=== PATIENT | female | born 1990 | race Caucasian/White ===

== ENCOUNTER → 2025-10-09 08:23 | Outpatient (CLI) | payer OTHER, SELFPAY ==
[2025-10-09 09:06] LABS: Hematocrit 41.9 % (36-46); Hemoglobin 14.5 g/dL (12.0-16.0); Mean Corpuscular HGB Conc 34.6 % (30-36); Mean Corpuscular Hemoglobin 30.9 PG (26-34); Mean Corpuscular Volume 89.2 fL (80-100); Platelet Count 198 X10^3/uL (150-400)
[2025-10-09 09:46] LABS: Alanine Aminotransferase 14 IU/L (<35); Albumin 4.4 g/dL (3.5-5.0); Albumin Globulin Ratio 1.5 (1.0-2.8); Alkaline Phosphatase 58 U/L (38-126); Blood Urea Nitrogen 11 mg/dL (7-17); Calcium 9.0 mg/dL (8.4-10.2); Carbon Dioxide 24 mmol/L (22-32); Chloride 104 mmol/L (98-107); Cholesterol 183 mg/dL (140-199); Estimated Glomerular Filt Rate > 60 mL/min (>60); Globulin 3.0 g/dL (1.7-4.1); Glucose 92 mg/dL (70-99); HDL Cholesterol 94 mg/dL (40-60); HEMOLYSIS < 15 (0-50); Potassium 4.4 mmol/L (3.4-5.1); Sodium 135 mmol/L (137-145); Total Protein 7.4 g/dL (6.3-8.2); Triglycerides 67 mg/dL (35-150)
[2025-10-09 09:52] LABS: Vitamin D 25 Hydroxy (D3) 25.6 ng/mL (30.0-100.0)
[2025-10-09 10:07] LABS: TSH w/ Reflex to FT4 7.91 uIU/mL (0.47-4.68)
[2025-10-09 10:32] LABS: Free T4, Direct Thyroxine 0.62 ng/dL (0.78-2.19)
== END ==
PROVIDERS: PCP Registered Nurse Diabetes Educator; Referring Provider Registered Nurse Diabetes Educator; Visit Provider Registered Nurse Diabetes Educator
DX: Z00.00 Encounter for general adult medical examination without abnormal findings (principal); E55.9 Vitamin D deficiency, unspecified; E03.8 Other specified hypothyroidism; E06.3 Autoimmune thyroiditis
CPT/HCPCS: 36415; 80053; 80061; 82306; 84439; 84443; 85027

== ENCOUNTER → 2025-10-17 13:31 | Outpatient (CLI) | payer OTHER, SELFPAY ==
--- NOTE | 2025-10-17 13:32 | DI.MG.S_ITS ---
US breast BI limited, MM diagnostic mammo BI: 10/17/2025 BI-RADS: 3 CLINICAL: 35-year old female for bilateral diagnostic mammogram and bilateral diagnostic breast ultrasound. Tyrer-Cuzick lifetime risk of 30.2%. Current reported family history of breast cancer: mother. The patient reports a palpable abnormality (1 month) in the left breast. PRIOR EXAMS: None. This is a baseline examination. MAMMOGRAPHY TECHNIQUE: 2D and 3D (tomosynthesis) digital mammographic views obtained. Current study was also evaluated with a Computer Aided Detection (CAD) system. Additional diagnostic views were not able to be obtained due to technical issues with the mammogram machine. ULTRASOUND TECHNIQUE: TARGETED Bilateral Breast Ultrasound: Real-time ultrasound exam was performed focused to area of clinical and/or imaging concern. Real-time ballesteros scale and color doppler imaging of the area of clinical interest was performed with image documentation. DENSITY D. The breasts are extremely dense, which lowers the sensitivity of mammography. MAMMOGRAPHY FINDINGS Right: CC only, Central, Anterior depth: There is an asymmetry seen only on one view. This projects to the inferior breast on the tomosynthesis images. This may represent superimposed fibroglandular tissue. Left: Upper Outer Quadrant, Middle depth: A skin marker was placed in the area of concern, and no mammographic abnormalities are identified or to account for concern by the patient of a palpable lump. Left: Upper Inner Quadrant, Posterior depth, measuring 0.5cm: There is an asymmetry seen only on one view. Left: Inner Central, Posterior depth, measuring 0.5cm: There is an asymmetry seen only on one view. ULTRASOUND FINDINGS Right: Lower at 6:00, 1 cm from nipple: There is no sonographic abnormality to account for imaging concern on mammography. Left: Upper Outer at 1:00, 6 cm from nipple: Underlying surface marker there is a complicated cyst present. Doppler shows no vascularity. This is likely an incidental finding. Left: Upper Inner at 10:00, 2 cm from nipple, measuring 0.5 x 0.3 x 0.5 cm: Correlating with findings on mammogram, there is a simple anechoic cyst showing posterior acoustic enhancement. Doppler shows no vascularity. There is an incidental adjacent 0.8 cm simple cyst. Left: Lower Inner at 8:30, 4 cm from nipple, measuring 0.5 x 0.4 x 0.4 cm: Correlating with findings on mammogram, there is a simple anechoic cyst showing posterior acoustic enhancement. Doppler shows no vascularity. IMPRESSION: Right * No evidence of malignancy. Left (Complicated Cyst): Upper Outer at 1:00, 6 cm from nipple * Probably Benign. RECOMMENDATIONS Left: Upper Outer at 1:00, 6 cm from nipple * Six month followup with diagnostic ultrasound. COMMENTS: Findings and recommendations were conveyed to the patient during today's evaluation. In addition, this patient has an elevated lifetime risk for breast cancer of over 20%. Recommend consideration for annual screening breast MRI as an adjunct to screening mammography. OVERALL ASSESSMENT CATEGORY BI-RADS-3: Probably Benign. ELECTRONICALLY SIGNED: Avril Echevarria M.D. on 10/17/2025 at 05:31:58 PM PT Interpreting Station ID: [id number]
== END ==
LOC: MAMMO 13:31
PROVIDERS: PCP Registered Nurse Diabetes Educator; Referring Provider Physician Assistant; Visit Provider Physician Assistant
DX: R92.8 Other abnormal and inconclusive findings on diagnostic imaging of breast (principal); N63.20 Unspecified lump in the left breast, unspecified quadrant; N60.02 Solitary cyst of left breast; R92.343 Mammographic extreme density, bilateral breasts; Z80.3 Family history of malignant neoplasm of breast
CPT/HCPCS: 76642; 77066; G0279